=== PATIENT | female | born 1980 | race Caucasian/White ===

== ENCOUNTER 2018-10-21 18:36 | Emergency (ER) | payer MEDICAID ==
[~2018-10-21] VITALS: Ht 167.6 cm; Wt 75.8 kg
[~2018-10-21 18:36] MED LIST: AMOXICILLIN500 MG PO; PRENATA3 PO; ULTRAM50 M1 PO
[2018-10-21 19:39] LABS: HEMATOCRIT 39.6 % (37.0-47.0); IMMATURE GRANULOCYTES 0.3 % (0.0-5.0); MEAN CORPUSCULAR HGB 29.2 pG CALC (26.0-32.0); MEAN CORPUSCULAR HGB CONC 32.8 g/L CALC (32.0-36.0); NEUT# 8.79 thou/uL (2.00-7.15); RED BLOOD COUNT 4.45 mill/uL (4.20-5.60)
[2018-10-21 19:41] LABS: URINE BILIRUBIN - DIPSTICK NEGATIVE (NEGATIVE); URINE BLOOD DIPSTICK SMALL (NEGATIVE); URINE COLOR YELLOW; URINE GLUCOSE - DIPSTICK NEGATIVE (NEGATIVE); URINE KETONE NEGATIVE (NEGATIVE); URINE NITRITE - DIPSTICK NEGATIVE (Negative); URINE PROTEIN - DIPSTICK 30 mg/dL (NEG-TRACE); URINE UROBILINOGEN - DIPSTICK 0.2 E.U./dL (0.2)
[2018-10-21 19:42] LABS: URINE LEUK ESTERASE MODERATE (NEGATIVE)
[2018-10-21 19:51] LABS: URINE SQUAMOUS EPITHELIAL CELL FEW EPI/hpf (0-FEW); URINE WBC 50-100 WBC/hpf (0-5)
[2018-10-21 20:24] LABS: ALBUMIN 3.8 g/dL (3.2-5.0); ALKALINE PHOSPHATASE 73 u/l (38-126); ANION GAP 15 (6-22 (CALC)); BILIRUBIN, TOTAL 0.7 mg/dL (0.0-1.4); BUN 7 mg/dL (7-17); BUN/CREATININE RATIO 9 (12-20 (CALC)); CARBON DIOXIDE 22 mmol/l (22-30); CHLORIDE 101 mmol/l (95-108); CREATININE 0.7 mg/dL (0.5-1.0); GFR > 60 ML/MIN (>=60 (CALC)); GFR FOR AFR.AMER. > 60 ML/MIN (>=60 (CALC)); POTASSIUM 3.6 mmol/l (3.5-5.1); SODIUM 135 mmol/l (137-146); TOTAL PROTEIN 7.2 g/dL (6.3-8.2)
[2018-10-21 20:25] LABS: SGOT/AST 36 u/l (14-36)
[2018-10-21] MEDS ORDERED: CIPROFLOXACN500 MG PO (21:38)
[2018-10-21 21:53] VITALS: BP 100/61
== END 2018-10-21 21:57 | disposition home or self-care (01) ==
LOC: ED 18:36
PROVIDERS: Emergency Medicine
DX: N39.0 Urinary tract infection, site not specified (principal); B96.20 Unspecified Escherichia coli [E. coli] as the cause of diseases classified elsewhere; F17.200 Nicotine dependence, unspecified, uncomplicated; R10.9 Unspecified abdominal pain; R35.0 Frequency of micturition; R39.15 Urgency of urination; R50.9 Fever, unspecified

== ENCOUNTER 2020-09-15 12:54 | Emergency (ER) | payer MEDICAID ==
[~2020-09-15] VITALS: Ht 167.6 cm; Wt 84.0 kg
[~2020-09-15 12:54] MED LIST changes: +CIPROFLOXACN500 MG PO
[2020-09-15] MEDS ORDERED: DIFLUCAN100 M1 PO (13:22)
[2020-09-15] MEDS ORDERED: CLINDAMYCIN300 M1 PO (13:22)
[2020-09-15 13:26] VITALS: BP 110/71
== END 2020-09-15 13:28 | disposition home or self-care (01) ==
LOC: ED 12:54
DX: K04.7 Periapical abscess without sinus (principal); K02.9 Dental caries, unspecified; F17.210 Nicotine dependence, cigarettes, uncomplicated

== ENCOUNTER 2021-07-28 21:51 | Emergency (ER) | payer MEDICAID ==
[~2021-07-28] VITALS: Ht 170.2 cm; Wt 85.0 kg
[~2021-07-28 21:51] MED LIST changes: +CLINDAMYCIN300 M1 PO; +DIFLUCAN100 M1 PO
[2021-07-28 21:52] VITALS: BP 117/67
[2021-07-28] MEDS ORDERED: AMOXICILLIN500 MG PO (22:25)
[2021-07-28] MEDS ORDERED: ULTRAM50 M1 PO (22:25)
== END 2021-07-28 22:43 | disposition home or self-care (01) ==
LOC: ED 21:51
DX: K04.7 Periapical abscess without sinus (principal); M84.48XA Pathological fracture, other site, initial encounter for fracture; F17.200 Nicotine dependence, unspecified, uncomplicated

== ENCOUNTER → 2022-07-06 | Emergency (ER) | payer OTHER ==
[~2022-07-06] VITALS: Ht 170.2 cm; Wt 90.0 kg
[~2022-07-06] MED LIST changes: +AMOXICILLIN500 M2 PO; +CALNA PO; +TRAMADOL HCL50 MG PO
[2022-07-06 22:40] VITALS: BP 116/77
[2022-07-06 22:45] VITALS: BP 116/73
[2022-07-06 23:00] VITALS: BP 118/77
[2022-07-06 23:15] VITALS: BP 114/79
[2022-07-06 23:30] VITALS: BP 118/84
[2022-07-06 23:36] VITALS: BP 118/84
== END | disposition home or self-care (01) ==
LOC: ED 22:29
DX: O99.613 Diseases of the digestive system complicating pregnancy, third trimester (principal); K02.9 Dental caries, unspecified; K04.7 Periapical abscess without sinus; O99.333 Smoking (tobacco) complicating pregnancy, third trimester; F17.200 Nicotine dependence, unspecified, uncomplicated; Z3A.29 29 weeks gestation of pregnancy